=== PATIENT | male | born 1935 | race Two or more races ===

== ENCOUNTER 2019-04-07 16:11 | Inpatient (IN) | payer MEDICARE, OTHER ==
[~2019-04-07] VITALS: Ht 172.7 cm; Wt 68.9 kg
--- NOTE | 2019-04-07 00:55 | NUR ---
The patient was brought onto the unit and placed in his room @0044. The patient is alert and oriented x4. is present at bed side. He does not appear to be in any distress and denies any pain. The patient was oriented to the call light, room, and bed. The bed placed in the lowest position, 2x side rails up, and bed alarm is turned on. The patient has been instructed to use call light when assistance is needed.
[~2019-04-07 16:11] MED LIST: HYDR12.56 PO; HYDR25TA4 PO; INSUINJ32 SC; LISI-646 PO; METF-370 PO; PRAV20TA3 GT
[2019-04-07] MEDS ORDERED: cloNIDine HCL 0.1 MG TAB PO ONE (16:30)
[2019-04-07 18:37] LABS: Alanine Aminotransferase 17 U/L (16-61); Albumin 3.3 g/dL (3.4-5.0); Anion Gap 5 (5-15); Aspartate Aminotransferase 12 U/L (15-37); BUN/Creatinine Ratio 14.1; Blood Urea Nitrogen 20 mg/dL (7-18); Calcium 8.4 mg/dL (8.5-10.1); Carbon Dioxide 25 mmol/L (21-32); Chloride 108 mmol/L (98-107); GFR African American 61 mL/min; GFR Non-African American 51 mL/min; Glucose 304 mg/dL (74-106); Potassium 5.3 mmol/L (3.5-5.1); Sodium 138 mmol/L (136-145)
[2019-04-07 18:42] LABS: Alkaline Phosphatase 64 U/L (45-117); Bilirubin, Total 0.5 mg/dL (0.2-1.0); Total Protein 6.8 g/dL (6.4-8.2)
[2019-04-07 18:47] LABS: Basophils # (auto) 0 uL; Basophils % (auto) 0.7 % (0.0-2.0); Eosinophils # (auto) 0.1 uL; Eosinophils % (auto) 1.8 % (0.0-7.0); Hematocrit 36.9 % (41.0-53.0); Hemoglobin 12.2 g/dL (13.5-17.5); Lymphocytes # (auto) 1.3 uL; Lymphocytes % (auto) 20.9 % (10.0-50.0); Mean Corpuscular Hemoglobin 29.9 pg (28.0-32.0); Mean Corpuscular Hgb Conc. 33.1 g/dL (32.0-36.0); Mean Corpuscular Volume 90.2 fL (80.0-100.0); Monocytes # (auto) 0.4 uL; Monocytes % (auto) 6.4 % (0.0-12.0); Neutrophils # (auto) 4.5 uL; Neutrophils % (auto) 70.2 % (37.0-80.0); Platelet Count (auto) 194 10^3/uL (140-450); Red Blood Cells 4.09 10^6/uL (4.5-5.90); White Blood Cell 6.4 10^3/uL (4.4-10.8)
[2019-04-07] MEDS ORDERED: ACETAMINOPHEN 325 MG TAB PO PRN (22:45)
[2019-04-07] MEDS ORDERED: HYDROcodone-ACET 5/325MG TAB PO PRN (22:45)
[2019-04-07] MEDS ORDERED: TEMAZEPAM 15 MG CAP PO PRN (22:45)
[2019-04-07] MEDS ORDERED: SODIUM ZIRCONIUM CYCL 10 GM PAK PO ONE (23:00)
[2019-04-08] MEDS: cloNIDine HCL 0.1 MG TAB PO PRN ×2 (01:39→16:28)
--- NOTE | 2019-04-08 01:40 | NUR ---
The patient's BP is 174/72. The patient is currently asymptomatic. Will medicate the patient with PRN clonidine 0.1 mg.
--- NOTE | 2019-04-08 02:50 | NUR ---
Upon reassessment, the patient's blood pressure is 132/53. Will continue to monitor the patient's blood pressure.
[2019-04-08 05:23] VITALS: BP 131/72
[2019-04-08 06:42] LABS: Basophils # (auto) 0 uL; Basophils % (auto) 0.7 % (0.0-2.0); Eosinophils # (auto) 0.2 uL; Eosinophils % (auto) 2.5 % (0.0-7.0); Hematocrit 35.1 % (41.0-53.0); Lymphocytes # (auto) 1.4 uL; Lymphocytes % (auto) 23.3 % (10.0-50.0); Mean Corpuscular Hemoglobin 30.5 pg (28.0-32.0); Mean Corpuscular Hgb Conc. 34.1 g/dL (32.0-36.0); Mean Corpuscular Volume 89.4 fL (80.0-100.0); Monocytes # (auto) 0.5 uL; Monocytes % (auto) 7.9 % (0.0-12.0); Neutrophils # (auto) 3.9 uL; Neutrophils % (auto) 65.6 % (37.0-80.0); Platelet Count (auto) 180 10^3/uL (140-450); Red Blood Cells 3.93 10^6/uL (4.5-5.90); Red Cell Distribution Width 13.6 % (11.8-14.3)
[2019-04-08 06:47] LABS: Calcium 8.3 mg/dL (8.5-10.1); Potassium 4.7 mmol/L (3.5-5.1)
--- NOTE | 2019-04-08 07:20 | NUR ---
Closing note The patient is resting comfortably in bed and is stable. Care has been endorsed to Day shift RN.
--- NOTE | 2019-04-08 07:30 | NUR ---
Opening Shift Note Assumed care of patient, awake and alert. No S/S of distress/SOB or pain. Instructed on POC and to call for assist PRN, will continue to monitor. Bed locked in the lowest position. Bed rails up x2. Call light in reach.
[2019-04-08 09:00] VITALS: BP 125/55
[2019-04-08] MEDS: LISINOPRIL 20 MG TAB PO SCH (10:12)
[2019-04-08] MEDS: HCTZ 25 MG TAB PO SCH (10:13)
[2019-04-08 13:00] VITALS: BP 148/73
--- NOTE | 2019-04-08 13:09 | NUR ---
HEART RATE PATIENT HR HAS BEEN 49-59 BPM. OBTAINED EKG AND PLACED IN CHART FOR MD REVIEW. PATIENT IS ASYMPTOMATIC AT THIS TIME. PATIENT DENIES DIZZINESS, SOB, AND PAIN. WILL CONTINUE TO MONITOR.
--- NOTE | 2019-04-08 16:20 | NUR ---
BLOOD PRESSURE BP OF 187/86. PRN GIVEN ORDERED. AWARE.
[2019-04-08 17:00] VITALS: BP 187/86
--- NOTE | 2019-04-08 18:00 | NUR ---
AWARE DR. MUNSON AWARE OF PTS TRENDING HR. NO NEW ORDERS RECEIVED.
[2019-04-08] MEDS ORDERED: INSULIN LANTUS (GLARGINE) 1 /0.01ml (100units/ml) SC ONE (18:15)
[2019-04-08] MEDS ORDERED: DEXTROSE (50%) 50ML SYRG IV PRN (18:15)
[2019-04-08] MEDS ORDERED: metFORMIN HYDROCHLORIDE 850 MG TAB PO ONE (18:15)
--- NOTE | 2019-04-08 18:28 | NUR ---
UNABLE TO COMPLETE ORDER DR. MUNSON AT THE BEDSIDE PLACING NEW ORDERS. MD AWARE THAT NEW ORDERS ARE NOT BEING TRANSMITTED TO PHARMACY. UNABLE TO OVERRIDE MEDICATIONS AT THIS TIME. PER MD, OK TO HOLD NEW ORDERS.
--- NOTE | 2019-04-08 19:02 | NUR ---
CLOSING NOTE Patient is awake and alert. No S/S of distress/SOB or pain. Bed locked in the lowest position. Bed rails up x2. Call light in reach. Endorsed care to night nurse.
--- NOTE | 2019-04-08 19:15 | NUR ---
Opening Shift Note Assumed care of patient, awake and alert. No S/S of distress/SOB or pain. Instructed on POC and to call for assist PRN, will continue to monitor for changes Q1hr and PRN.
[2019-04-08 22:00] VITALS: BP 136/61
[2019-04-08] MEDS ORDERED: ATORVASTATIN 20 MG TAB PO SCH (22:00)
[2019-04-08] MEDS: ACCU-CHEK COMFORT CURVE STRIP VI SCH (22:08)
--- NOTE | 2019-04-08 22:10 | NUR ---
Assessed the patient's glucose level which resulted as 341 dL/mg. The patient currently has no Insulin R sliding slide. Will page hospitalist for Insulin sliding scale orders.
--- NOTE | 2019-04-08 22:15 | NUR ---
Obtained mild ACHS Insulin sliding scale from hospitalist Fuentes.
[2019-04-08] MEDS: InsuLIN REG 1unit/0.01ml Soln (100units/ml) SC SCH (22:56)
[2019-04-09 05:00] VITALS: BP 112/55
[2019-04-09] MEDS: InsuLIN REG 1unit/0.01ml Soln (100units/ml) SC SCH ×2 (06:38→11:30)
[2019-04-09] MEDS: ACCU-CHEK COMFORT CURVE STRIP VI SCH ×2 (06:39→11:30)
[2019-04-09] MEDS ORDERED: metFORMIN HYDROCHLORIDE 850 MG TAB PO SCH (07:00)
--- NOTE | 2019-04-09 07:37 | NUR ---
Closing note The patient is resting comfortably in bed and is stable. Call light is within reach. Care has been endorsed to Day shift RN.
[2019-04-09 08:00] VITALS: BP 139/61
[2019-04-09 08:57] VITALS: BP 139/61
[2019-04-09 09:46] LABS: Urine Bacteria NONE SEEN /hpf (None Seen); Urine Blood Negative /uL (Negative); Urine Specific Gravity 1.019 (1.001-1.035); Urine WBC <1 /hpf (0 - 3)
[2019-04-09 10:00] LABS: Protein, Urine 32.2 mg/dL (0.0-11.9)
[2019-04-09] MEDS: HCTZ 25 MG TAB PO SCH (10:20)
[2019-04-09] MEDS: LISINOPRIL 20 MG TAB PO SCH (10:20)
--- NOTE | 2019-04-09 11:20 | NUR ---
Dr. Ann luke Addendum: 04/09/19 at 1317 by ALAYNA SOLORZANO RN Spoke with ; reports sodium bicarb dose should not affect blood pressure.
[2019-04-09] MEDS: cloNIDine HCL 0.1 MG TAB PO PRN (11:55)
--- NOTE | 2019-04-09 11:59 | NUR ---
BP 187/64 Dr. Alexander at bedside. Patient given PRN clonidine.
[2019-04-09 12:27] VITALS: BP 120/69
[2019-04-09 12:42] VITALS: BP 187/84
--- NOTE | 2019-04-09 12:58 | NUR ---
BP recheck 137/61
--- NOTE | 2019-04-09 13:15 | NUR ---
Discharge from Tele Discharge instructions given as ordered. Encourage to follow up with PMD as instructed. All questions and concerns addressed. Patient verbalized understanding. IV removed with catheter intact, pressure dressing applied. Patient taken to vehicle via wheelchair with all personal belongings, accompanied by staff and family member. No distress noted at time of departure.
== END 2019-04-09 13:15 | disposition home or self-care (01) | DRG 683 ==
LOC: ER 16:11 → WEST WING 22:36
PROVIDERS: ADMIT Nurse Practitioner; ATTEND Nurse Practitioner
DX: I12.9 Hypertensive chronic kidney disease with stage 1 through stage 4 chronic kidney disease, or unspecified chronic kidney disease (principal); N17.9 Acute kidney failure, unspecified; N25.89 Other disorders resulting from impaired renal tubular function; E87.5 Hyperkalemia; E11.65 Type 2 diabetes mellitus with hyperglycemia; E11.22 Type 2 diabetes mellitus with diabetic chronic kidney disease; N18.9 Chronic kidney disease, unspecified; E78.5 Hyperlipidemia, unspecified; E03.9 Hypothyroidism, unspecified; H40.9 Unspecified glaucoma; H54.7 Unspecified visual loss; Z79.4 Long term (current) use of insulin; Z82.49 Family history of ischemic heart disease and other diseases of the circulatory system; Z83.3 Family history of diabetes mellitus
CPT/HCPCS: 36415; 71045; 80048; 80053; 81001; 82570; 82962; 83036; 84132; 84156; 84300; 84484; 85025; 93005; 94761; G0378; J1815

== ENCOUNTER 2025-03-28 10:52 | Inpatient (IN) | payer OTHER, BC ==
[~2025-03-28] VITALS: Ht 172.7 cm; Wt 62.9 kg
[~2025-03-28 10:52] MED LIST changes: +AMLO1TAB22 PO; +ATOR10TA52 PO; +DAPA1TAB4 PO; +FIN5T PO; -HYDR12.56 PO; +HYDR12.59 PO; +INSU100I4 SC; -INSUINJ32 SC; +INSUINJ37 SC; +LEV75T PO; -LISI-646 PO; +LISI10TA34 PO; +MEMA1TAB5 PO; -METF-370 PO; -PRAV20TA3 GT
--- NOTE | 2025-03-28 11:17 | ECG ---
[facility] Test Date: 2025-03-28 Test Time: 11:05:54 Pat Name: KAYCEE MOSS Department: ER Room: Gender: M Commercial Credit Analyst: GP : [id number] Requested By: ALAN STUART Order Number: [id number] Reading MD: Pipe Sung Measurements Intervals [place] Rate: 82 P: 61 NM: 175 QRS: 61 QRSD: 98 T: 82 QT: 371 QTc: 434 Interpretive Statements Sinus rhythm Nonspecific repol abnormality, lateral leads Electronically Signed On 03-28-2025 17:11:28 PDT by Pipe Sung Please click the below link to view image of tracing.
--- NOTE | 2025-03-28 11:46 | ED.PDOC ---
History of Present Illness HPI Comments 89-year-old male with history of dementia, hypertension, diabetes and dyslipidemia brought in by family for evaluation of possible stroke symptoms. Patient's family states that the patient was noted to be having episodes of fixed gaze during which he was not verbally responsive to questions. They also note that his right hand and wrist have been held in a flexed position. Symptoms started yesterday morning, unclear exactly what time. The patient also was noted to be sleeping much more than usual. Patient himself denies any headache, vision changes or other symptoms. He does note that his right hand feels weaker than normal. Chief Complaint: ALOC Time Seen by MD: 11:15 Primary Care Provider: DICK Jacobson Notes: Nurses Notes, Medications, Allergies Allergies: Coded Allergies: NO KNOWN ALLERGIES (Unverified , 05/10/14) Home Meds Reported Medications Hydrochlorothiazide (Hydrochlorothiazide) 25 Mg Tab, 25 MG PO DAILY, TAB 05/11/14 Hydrochlorothiazide (Hydrochlorothiazide) 12.5 Mg Cap, 12.5 MG PO DAILY, #1 MG 05/10/14 Information Source: Patient Mode of Arrival: Wheelchair Severity: Moderate Timing: Hours Duration: Since onset Prehospital treatment: None Past Medical History PAST MEDICAL HISTORY: Dementia, DM, High Lipids, HTN, Thyroid Past Medical History (Other): Blind Surgical History (Other): Cataracts Family History Family History: Reviewed,noncontributory to illness, Unknown Social History Smoker: Non-Smoker Alcohol: Denies ETOH Use Drugs: Denies Drug Use Lives In: Home Constitutional: reports: others (Right hand contracted); denies: chills, diaphoresis, fatigue, fever, malaise, sweats, weakness EENTM: denies: blurred vision, double vision, ear bleeding, ear discharge, ear drainage, ear pain, ear ringing, eye pain, eye redness, hearing loss, mouth pain, mouth swelling, nasal discharge, nose bleeding, nose congestion, nose pain, photophobia, tearing, throat pain, throat swelling, voice changes, others Respiratory: denies: cough, hemoptysis, orthopnea, SOB at rest, shortness of breath, SOB with excertion, stridor, wheezing, others Cardiovascular: denies: chest pain, dizzy spells, diaphoresis, Dyspnea on exertion, edema, irregular heart beat, left arm pain, lightheadedness, palpitations, PND, syncope, others Gastrointestinal: denies: abdomen distended, abdominal pain, blood streaked bowels, constipated, diarrhea, dysphagia, difficulty swallowing, hematemesis, melena, nausea, poor appetite, poor fluid intake, rectal bleeding, rectal pain, vomiting, others Genitourinary: denies: burning, dysuria, flank pain, frequency, hematuria, incontinence, penile discharge, penile sore, pain, testicle pain, testicle swelling, urgency, others Neurological: denies: dizziness, fainting, headache, left sided numbness, left sided weakness, numbness, paresthesia, pre-existing deficit, right sided numbness, right sided weakness, seizure, speech problems, tingling, tremors, weakness, others Musculoskeletal: denies: back pain, gout, joint pain, joint swelling, muscle pain, muscle stiffness, neck pain, others Integumetry: denies: bruises, change in color, change in hair/nails, dryness, laceration, lesions, lumps, rash, wounds, others Allergic/Immunocompromised: denies: Difficulty Healing, Frequent Infections, Hives, Itching, others Hematologic/Lymphatic: denies: anemia, blood clots, easy bleeding, easy bruising, swollen glands, others Endocrine: denies: excessive hunger, excessive sweating, excessive thirst, excessive urination, flushing, intolerance to cold, intolerance to heat, unexplained weight gain, unexplained weight loss, others Psychiatric: denies: anxiety, bipolar disorder, depression, hopeless, panic disorder, schizophrenia, sleepless, suicidal, others All Other Systems: Reviewed and Negative Physical Exam General Appearance: No Apparent Distress HEENT: Other (Pupils and face symmetric. Moist mucous membranes.) Neck: Full Range of Motion, Normal Inspection Respiratory: Lungs Clear, No Accessory Muscle Use, No Respiratory Distress, Normal Breath Sounds Cardiovascular: No Edema, No JVD, Regular Rate/Rhythm Breast Exam: Deferred Gastrointestinal: Non Tender, Soft Genitalia: Deferred Pelvic: Deferred Rectal: Deferred Extremities: No pedal edema Neurologic: Alert (Oriented x3), film laboratory technician II-XII nml as Tested, Motor Weakness (Right upper extremity 4/5, left upper extremity and bilateral lower extremities 5/5) Cerebellar Function: NOT DONE Reflexes: NOT DONE Skin: Dry, Normal Color, Warm Lymphatic: NOT DONE Was a procedure done? Was a procedure done?: No EKG EKG : Comments Sinus rhythm, rate 82, normal intervals, left axis deviation, possible old inferior infarct, nonspecific T changes. Differential Dx Considerations may include: CVA, TIA, electrolyte imbalance, infection such as meningitis, encephalitis, UTI, arrhythmia, TN, among others X-Ray, Labs, Meds, VS Vital Signs Date Time Temp Pulse Resp B/P (MAP) Pulse Ox O2 Delivery O2 Flow Rate FiO2 03/28/25 19:32 98.6 76 15 119/62 (81) 98 98.6 03/28/25 18:00 72 20 144/58 (86) 100 03/28/25 16:00 72 17 149/60 (89) 100 03/28/25 16:00 73 03/28/25 14:00 70 20 132/54 (80) 100 03/28/25 13:35 97.0 68 18 134/57 (82) 99 97.0 03/28/25 12:30 74 19 99 Room Air* 0 21 03/28/25 12:08 71 03/28/25 11:05 82 03/28/25 10:57 97.9 83 18 110/42 (64) 99 97.9 Lab Test 03/28/25 17:50 03/28/25 16:00 03/28/25 12:40 03/28/25 11:31 Range/Units POC Glucose 138 H 70-106 mg/dl Urine Color Light-yellow Yellow Urine Clarity Clear Clear Urine pH 5.0 5.0-9.0 Urine Specific [place] 1.019 1.001-1.035 Urine Protein Negative Negative Urine Ketones Negative Negative Urine Blood Negative Negative /uL Urine Nitrite Negative Negative Urine Bilirubin Negative Negative Urine Urobilinogen Normal Negative mg/dL Urine Leukocyte Esterase Negative Negative /uL Urine RBC 1 0 - 3 /hpf Urine Microscopic WBC 1 0-3 /HPF Urine Squamous Epithelial Cells None seen <5 /hpf Urine Bacteria None seen None Seen /hpf Urine Mucus Few None Seen Urine Glucose 4+ H Normal mg/dL Troponin I High Sensitivity 69 *H 75 *H </=54 ng/L White Blood Count 11.6 H 4.4-10.8 10^3/uL Red Blood Count 3.76 L 4.5-5.90 10^6/uL Hemoglobin 11.3 L 13.5-17.5 g/dL Hematocrit 33.4 L 41.0-53.0 % Mean Corpuscular Volume 88.9 80.0-100.0 fL Mean Corpuscular Hemoglobin 29.9 28.0-32.0 pg Mean Corpuscular Hemoglobin Concent 33.7 32.0-36.0 g/dL Red Cell Distribution Width 15.4 H 11.8-14.3 % Platelet Count 430 140-450 10^3/uL Mean Platelet Volume 7.3 6.9-10.8 fL Neutrophils (%) (Auto) 84.4 H 37.0-80.0 % Lymphocytes (%) (Auto) 8.8 L 10.0-50.0 % Monocytes (%) (Auto) 6.0 0.0-12.0 % Eosinophils (%) (Auto) 0.3 0.0-7.0 % Basophils (%) (Auto) 0.5 0.0-2.0 % Neutrophils # (Auto) 9.8 H 1.6-8.6 10 ^3/uL Lymphocytes # (Auto) 1.0 0.4-5.4 10 ^3/uL Monocytes # (Auto) 0.7 0-1.3 10 ^3/uL Eosinophils # (Auto) 0 0-0.8 10 ^3/uL Basophils # (Auto) 0.1 0-0.2 10 ^3/uL Nucleated Red Blood Cells 0.1 % Sodium Level 135 L 136-145 mmol/L Potassium Level 4.9 3.5-5.1 mmol/L Chloride Level 107 98-107 mmol/L Carbon Dioxide Level 20 20-31 mmol/L Anion Gap 8 5-15 Blood Urea Nitrogen 60 H 9-23 mg/dL Creatinine 1.47 H 0.700-1.30 mg/dL Glomerular Filtration Rate Calc 45 >90 mL/min BUN/Creatinine Ratio 40.8 H 10.0-20.0 Serum Glucose 225 H 74-106 mg/dL Calcium Level 9.3 8.7-10.4 mg/dL Total Bilirubin 0.6 0.2-1.0 mg/dL Aspartate Amino Transferase (AST) 17 13-40 U/L Alanine Aminotransferase (ALT) 13 7-40 U/L Alkaline Phosphatase 55 46-116 U/L B-Type Natriuretic Peptide 50.25 0-100 pg/mL Total Protein 7.0 5.7-8.2 g/dL Albumin 4.0 3.2-4.8 g/dL Test 03/28/25 11:07 Range/Units POC Glucose 179 H 70-106 mg/dl Current Medications Medications (Trade) Dose Ordered Sig/Slick Route Start Time Stop Time Status Last Admin Aspirin 325 mg ONCE ONCE PO 03/28/25 12:30 03/28/25 12:38 DC 03/28/25 12:46 PROCEDURE(s): HWOCT - HEAD WITHOUT CONTRAST REASON: rue weak, mental status change ORDER NUMBER(s): [id number], ACCESSION NUMBER(s): [id number] CLINICAL INFORMATION: 89 years old, Male; rue weak, mental status change. TECHNIQUE: Axial imaging was obtained through the brain without contrast. Coronal and sagittal reformatted images were obtained, reviewed, and stored. Images were reviewed in brain and bone windows. All CT scans at this medical facility are performed using dose modulation techniques as appropriate to a performed exam including the following: Automated exposure control was utilized; adjustment of the MA and/or KV according to patient size; and use of iterative reconstruction technique. CTDIvol = 57.63 mGy DLP = 1135.76 mGy-cm COMPARISON: None FINDINGS: There is no acute intracranial hemorrhage. No mass effect or midline shift. Scattered areas of hypoattenuation are seen in the periventricular and subcortical white matter, which are nonspecific but most likely sequelae of small vessel ischemic disease. Lucencies in the basal ganglia bilaterally, likely small chronic lacunar infarcts. Focal area of encephalomalacia in the right occipital lobe likely sequela of prior infarct The ventricles and sulci are within normal limits in size for age. Basal cisterns are patent. Prominent extra-axial CSF fluid along the lateral aspect of the right cerebellar hemisphere, possible arachnoid cyst measuring up to 3 cm. The calvarium is unremarkable. Paranasal sinuses and mastoid air cells are clear. IMPRESSION: 1. No CT evidence of acute intracranial abnormality. 2. Nonacute findings as detailed above. EDURE(s): CXR1 - CHEST XRAY 1 VIEW REASON: RUE weakness, mental status change ORDER NUMBER(s): [id number], ACCESSION NUMBER(s): [id number] EXAM: XY CHEST XRAY 1 VIEW Indication: pain Technique: Single frontal view of the chest was obtained Comparison: None FINDINGS: Lines and Tubes: None Lungs: No focal consolidation. Pleura: No effusion. No pneumothorax. Cardiomediastinal contours: Unremarkable. Atherosclerotic vascular calcifications of the thoracic aorta are noted. Bones: No acute osseous abnormality. IMPRESSION: No acute cardiopulmonary disease. X-Ray, Labs, Meds, VS Comment 89-year-old male with history of dementia, hypertension, diabetes and dyslipidemia presenting with episodes of unresponsiveness and right upper extremity weakness since yesterday morning. Vitals unremarkable Exam remarkable for 4/5 strength in the right upper extremity with the right wrist held in flexion Rhythm strip independently interpreted by me: Sinus rhythm, rate 82, no ectopy. Chest x-ray and head CT unremarkable CBC remarkable for WBC 11.6, metabolic panel remarkable for sodium 135, BUN 60, creatinine 1.47, troponin 75, repeat 69, UA 4+ glucose, otherwise unremarkable Patient treated with the following in the ED: Aspirin 325 mg p.o. Plan is to admit the patient for MRI of the brain, Neurology and Cardiology evaluation. Case discussed with Dr. Nuñez, who will admit the patient. Time of 1ST Reevaluation: 11:45 Reevaluation 1ST: Unchanged Patient Education/Counseling: Diagnosis, Treatment, Prognosis Family Education/Counseling: Diagnosis, Treatment, Prognosis Departure 1 Departure Time of Disposition: 18:29 Impression: Primary Impression: CVA (cerebral vascular accident) Qualified Codes: I63.9 - Cerebral infarction, unspecified Additional Impression: Non-STEMI (non-ST elevated myocardial infarction) Disposition: 09 ADMITTED INPATIENT Admit to: [facility] Condition: Guarded Critical Care Note Critical Care Time?: No Stability Stability form required: No Heart Score Heart Score: Heart Score Response (Comments) Value History N/A 0 EKG N/A 0 Age N/A 0 Risk Factors N/A 0 Troponin N/A 0 Total 0 I personally scribed for ALAN DUVALL MD ([email or web address]) on 03/28/25 at 11:46. Electronically submitted by Toby Blunt ([email or web address]). I personally scribed for ALAN DUVALL MD ([email or web address]) on 03/28/25 at 17:43. Electronically submitted by Toby Blunt ([email or web address]). ALAN DUVALL MD Mar 28, 2025 11:46
--- NOTE | 2025-03-28 12:10 | DVH ---
CLINICAL INFORMATION: 89 years old, Male; rue weak, mental status change. TECHNIQUE: Axial imaging was obtained through the brain without contrast. Coronal and sagittal reform atted images were obtained, reviewed, and stored. Images were reviewed in brain and bone windows. Al l CT scans at this medical facility are performed using dose modulation techniques as appropriate to a performed exam including the following: Automated exposure control was utilized; adjustment of the MA and/or KV according to patient size; and use of iterative reconstruction technique. CTDIvol = 57.6 3 mGy DLP = 1135.76 mGy-cm COMPARISON: None FINDINGS: There is no acute intracranial hemorrhage. No mass effect or midline shift. Scattered areas of hypoattenuation are seen in the periventricular and subcortical white matter, which are nonspecif ic but most likely sequelae of small vessel ischemic disease. Lucencies in the basal ganglia bilatera lly, likely small chronic lacunar infarcts. Focal area of encephalomalacia in the right occipital lob e likely sequela of prior infarct The ventricles and sulci are within normal limits in size for age. Basal cisterns are patent. Prominent extra-axial CSF fluid along the lateral aspect of the right cere bellar hemisphere, possible arachnoid cyst measuring up to 3 cm. The calvarium is unremarkable. Paran herve sinuses and mastoid air cells are clear. IMPRESSION: 1. No CT evidence of acute intracranial abnormality. 2. Nonacute findings as detailed above.
--- NOTE | 2025-03-28 12:13 | DVH ---
EXAM: XY CHEST XRAY 1 VIEW Indication: pain Technique: Single frontal view of the chest was obtained Comparison: None FINDINGS: Lines and Tubes: None Lungs: No focal consolidation. Pleura: No effusion. No pneumothorax. Cardiomediastinal contours: Unremarkable. Atherosclerotic vascular calcifications of the thoracic ao rta are noted. Bones: No acute osseous abnormality. IMPRESSION: No acute cardiopulmonary disease.
[2025-03-28 12:27] LABS: Basophils # (auto) 0.1 10 ^3/uL (0-0.2); Basophils % (auto) 0.5 % (0.0-2.0); Eosinophils # (auto) 0 10 ^3/uL (0-0.8); Eosinophils % (auto) 0.3 % (0.0-7.0); Hematocrit 33.4 % (41.0-53.0); Hemoglobin 11.3 g/dL (13.5-17.5); Lymphocytes % (auto) 8.8 % (10.0-50.0); Mean Corpuscular Hemoglobin 29.9 pg (28.0-32.0); Mean Corpuscular Hgb Conc. 33.7 g/dL (32.0-36.0); Mean Corpuscular Volume 88.9 fL (80.0-100.0); Monocytes # (auto) 0.7 10 ^3/uL (0-1.3); Neutrophils # (auto) 9.8 10 ^3/uL (1.6-8.6); Neutrophils % (auto) 84.4 % (37.0-80.0); Nucleated Red Blood Cells % 0.1 %; Platelet Count (auto) 430 10^3/uL (140-450); Red Blood Cells 3.76 10^6/uL (4.5-5.90); Red Cell Distribution Width 15.4 % (11.8-14.3); White Blood Cell 11.6 10^3/uL (4.4-10.8)
[2025-03-28 12:30] VITALS: PULSE 74; RESP 19; O2SAT 99
[2025-03-28 12:45] LABS: Alanine Aminotransferase 13 U/L (7-40); Alkaline Phosphatase 55 U/L (46-116); Anion Gap 8 (5-15); Aspartate Aminotransferase 17 U/L (13-40); BUN/Creatinine Ratio 40.8 (10.0-20.0); Bilirubin, Total 0.6 mg/dL (0.2-1.0); Calcium 9.3 mg/dL (8.7-10.4); Carbon Dioxide 20 mmol/L (20-31); Potassium 4.9 mmol/L (3.5-5.1)
[2025-03-28] MEDS: ASPirin 325 MG TAB PO ONE (12:46)
[2025-03-28 12:47] LABS: Blood Urea Nitrogen 60 mg/dL (9-23); Chloride 107 mmol/L (98-107); Glucose 225 mg/dL (74-106); Sodium 135 mmol/L (136-145)
[2025-03-28 16:28] LABS: Urine Bacteria None Seen /hpf (None Seen)
[2025-03-28 16:45] LABS: Urine Blood Negative /uL (Negative); Urine Clarity Clear (Clear); Urine Color Light-Yellow (Yellow); Urine Mucus FEW (None Seen); Urine Protein, UAD Negative (Negative); Urine Specific Gravity 1.019 (1.001-1.035); Urine Squamous Epithelial Cell None Seen /hpf (<5); Urine Urobilinogen Normal (Negative); Urine WBC 1 /HPF (0-3)
[2025-03-28 19:32] VITALS: PULSE 76; RESP 15; O2SAT 98
[2025-03-28] MEDS ORDERED: NITROGLYCERIN 0.4 MG SL TAB SL PRN (22:00)
[2025-03-28] MEDS ORDERED: MORPHINE SULFATE INJ 2 MG/ml SYRG IV PRN (22:00)
[2025-03-28] MEDS ORDERED: ONDANSETRON HCL 4 MG/2 ML VIAL IV PRN (22:15)
[2025-03-28] MEDS: ALBUTEROL SULF 2.5 MG/0.5ML(0.5%) NEB SOLN NEB SCH (23:26)
[2025-03-28] MEDS: IPRATROPIUM BROM 0.5 MG/2.5ML INH SOL NEB PRN (23:26)
[2025-03-29] VITALS (17 sets, daily range): BP systolic 123–144; BP diastolic 52–86; PULSE 70–98; RESP 16–18; TEMP 97.1–98.1; O2SAT 18–100
[2025-03-29] MEDS ORDERED: DEXTROSE (50%) 50ML SYRG IV PRN (06:45)
[2025-03-29 07:38] LABS: Basophils # (auto) 0 10 ^3/uL (0-0.2); Basophils % (auto) 0.4 % (0.0-2.0); Eosinophils # (auto) 0.1 10 ^3/uL (0-0.8); Eosinophils % (auto) 0.7 % (0.0-7.0); Hematocrit 34.4 % (41.0-53.0); Hemoglobin 11.4 g/dL (13.5-17.5); Lymphocytes # (auto) 1.8 10 ^3/uL (0.4-5.4); Lymphocytes % (auto) 15.6 % (10.0-50.0); Mean Corpuscular Hgb Conc. 33.1 g/dL (32.0-36.0); Mean Corpuscular Volume 90.7 fL (80.0-100.0); Monocytes # (auto) 0.8 10 ^3/uL (0-1.3); Monocytes % (auto) 6.7 % (0.0-12.0); Neutrophils # (auto) 8.9 10 ^3/uL (1.6-8.6); Neutrophils % (auto) 76.6 % (37.0-80.0); Nucleated Red Blood Cells % 0.1 %; Platelet Count (auto) 422 10^3/uL (140-450); Red Cell Distribution Width 15.8 % (11.8-14.3); White Blood Cell 11.6 10^3/uL (4.4-10.8)
[2025-03-29 07:41] LABS: Alanine Aminotransferase 16 U/L (7-40); Alkaline Phosphatase 57 U/L (46-116); Anion Gap 6 (5-15); Aspartate Aminotransferase 16 U/L (13-40); BUN/Creatinine Ratio 36.5 (10.0-20.0); Bilirubin, Total 0.6 mg/dL (0.2-1.0); Calcium 9.8 mg/dL (8.7-10.4); Carbon Dioxide 25 mmol/L (20-31); Chloride 106 mmol/L (98-107); Potassium 4.6 mmol/L (3.5-5.1); Sodium 137 mmol/L (136-145); Total Protein 7.1 g/dL (5.7-8.2)
[2025-03-29 07:48] LABS: Blood Urea Nitrogen 54 mg/dL (9-23); Glucose 160 mg/dL (74-106)
[2025-03-29] MEDS: ENOXAPARIN SOD 40 MG/0.4 ML SYRINGE SC SCH (08:55)
[2025-03-29] MEDS: ACCU-CHEK COMFORT CURVE STRIP VI SCH (08:55)
[2025-03-29] MEDS: SODIUM CHLORIDE 0.9% 1,000 ML IV SCH (08:56)
[2025-03-29] MEDS: InsuLIN REG 1unit/0.01ml Soln (100units/ml) SC SCH (08:57)
--- NOTE | 2025-03-29 11:43 | DVHINCON2 ---
Date Seen: March 29, 2025 Referring Physician MD Joaquin Reason for Consultation Elevated troponin History of Present Illness This is an 89-year-old male patient who presents to the emergency room with chief complaint of stroke-like symptoms. The patient's daughter at bedside reports that she noticed that the patient's right hand went into a flexed position approximately two days ago. She states that she thought that the patient probably slept wrong so she did not think much of it. Yesterday, while out at a doctor's visit, the patient had an episode in which he was not verbally responsive to questions and appeared to have a fixed gaze. The patient's family also mentions that the patient has been more tired than usual. They brought the patient to the emergency room to rule out stroke. Cardiology has been consulted at this time for elevated troponin level. Initial twelve lead electrocardiogram reveals normal sinus rhythm with artifact. Initial troponin level of 75ng/L with down trend thereafter. Significant past medical history includes h ypertension, dyslipidemia, type 2 diabetes mellitus, peripheral neuropathy, benign prostatic hyperplasia, blindness, and dementia. The patient denies any cardiac symptoms at time of assessment. Past Medical History Past medical history reviewed. No other significant than mentioned above. Past Surgical History Denies all previous surgeries Family History: Diabetes mellitus G8 FATHER, Onset:Unknown Family history: Cardiovascular disease Family history: Hypertension G8 FATHER, Onset:Unknown Family History Family history reviewed. Social History Denies the use of tobacco, alcohol or illicit drugs. Allergies: Coded Allergies: NO KNOWN ALLERGIES (Unverified , 05/10/14) Home Meds Reported Medications Hydrochlorothiazide (Hydrochlorothiazide) 25 Mg Tab, 25 MG PO DAILY, TAB 05/11/14 Hydrochlorothiazide (Hydrochlorothiazide) 12.5 Mg Cap, 12.5 MG PO DAILY, #1 MG 05/10/14 Home Meds Home medications reviewed. Current Medications Current Medications Medications (Trade) Dose Ordered Sig/Slick Route PRN Reason Start Time Stop Time Status Last Admin Nitroglycerin (Ntrostat Sublingual) 0.4 mg Q5MINP PRN SL FOR CHEST PAIN 03/28/25 22:00 Morphine Sulfate 2 mg Q30M PRN IV FOR CHEST PAIN 03/28/25 22:00 Albuterol (Ventolin Medneb) 2.5 mg Q6HR NEB 03/29/25 00:00 03/29/25 06:15 Ipratropium [place] (Atrovent Medneb) 0.5 mg Q6HP PRN NEB SHORTNESS OF BREATH 03/29/25 00:00 03/29/25 06:15 Ondansetron HCl (Zofran) 4 mg Q6HPRN PRN IV NAUSEA / VOMITING 03/28/25 22:15 Enoxaparin Sodium (Lovenox) 40 mg DAILY SC 03/29/25 10:00 03/29/25 08:55 Diagnostic Test (Pha) (Accu-Chek Comfort Curve T) 1 strip IQ4HR 03/29/25 08:00 03/29/25 08:55 Insulin Human Regular (InsuLIN R) IQ4HR SC 03/29/25 08:00 03/29/25 08:57 Dextrose 50 ml UD PRN IV Blood Sugar LESS THAN 60 03/29/25 06:45 Sodium Chloride 1,000 ml @ 75 mls/hr [id number] IV 03/29/25 08:00 03/29/25 08:56 Review of Systems Constitutional: No symptom reported Ears, Nose, & Throat: No symptom reported Eyes: No symptom reported Neurological: No symptoms reported Pulmonary/Respiratory: No symptoms reported Cardiovascular: No symptom reported Gastrointestinal: No symptom reported Genitourinary: No symptom reported Musculoskeletal: No symptom reported Skin: No symptom reported Psychiatric: No symptom reported Endocrine: No symptom reported Hematologic/Lymphatic: No symptom reported Vital Signs Vital Signs Date Time Temp Pulse Resp B/P (MAP) Pulse Ox O2 Delivery O2 Flow Rate FiO2 03/29/25 06:25 72 18 100 03/29/25 06:15 Room Air 03/29/25 06:15 0 21 03/29/25 03:21 97.1 139/56 (83) 97.1 Physical Exam General Appearance: Cooperative. Thin, frail Pulmonary/Respiratory: Clear, bilateral breaths sounds. Cardiovascular/Chest: Regular rate and rhythm. Peripheral Pulses: 2+ Radial (R). 2+ Radial (L). 2+ Pedal (R). 2+ Pedal (L) Abdominal Exam: Normal bowel sounds. Ankle Exam: Negative ankle edema Lower extremities: Negative lower extremity edema Neuro/Mental Status: A/OX3, coherent. Thoughts/Psych: Normal thought pattern. Appearance: No acute distress. Skin Exam: Scabbed wounds to bilateral feet. Skin warm and dry Labs/Diagnostic Data Labs Test 03/29/25 08:14 03/29/25 06:28 03/29/25 06:24 03/28/25 16:00 Range/Units POC Glucose 157 H 70-106 mg/dl White Blood Count 11.6 H 4.4-10.8 10^3/uL Red Blood Count 3.80 L 4.5-5.90 10^6/uL Hemoglobin 11.4 L 13.5-17.5 g/dL Hematocrit 34.4 L 41.0-53.0 % Mean Corpuscular Volume 90.7 80.0-100.0 fL Mean Corpuscular Hemoglobin 30.0 28.0-32.0 pg Mean Corpuscular Hemoglobin Concent 33.1 32.0-36.0 g/dL Red Cell Distribution Width 15.8 H 11.8-14.3 % Platelet Count 422 140-450 10^3/uL Mean Platelet Volume 7.3 6.9-10.8 fL Neutrophils (%) (Auto) 76.6 37.0-80.0 % Lymphocytes (%) (Auto) 15.6 10.0-50.0 % Monocytes (%) (Auto) 6.7 0.0-12.0 % Eosinophils (%) (Auto) 0.7 0.0-7.0 % Basophils (%) (Auto) 0.4 0.0-2.0 % Neutrophils # (Auto) 8.9 H 1.6-8.6 10 ^3/uL Lymphocytes # (Auto) 1.8 0.4-5.4 10 ^3/uL Monocytes # (Auto) 0.8 0-1.3 10 ^3/uL Eosinophils # (Auto) 0.1 0-0.8 10 ^3/uL Basophils # (Auto) 0 0-0.2 10 ^3/uL Nucleated Red Blood Cells 0.1 % Sodium Level 137 136-145 mmol/L Potassium Level 4.6 3.5-5.1 mmol/L Chloride Level 106 98-107 mmol/L Carbon Dioxide Level 25 20-31 mmol/L Anion Gap 6 5-15 Blood Urea Nitrogen 54 H 9-23 mg/dL Creatinine 1.48 H 0.700-1.30 mg/dL Glomerular Filtration Rate Calc 45 >90 mL/min BUN/Creatinine Ratio 36.5 H 10.0-20.0 Serum Glucose 160 H 74-106 mg/dL Calcium Level 9.8 8.7-10.4 mg/dL Total Bilirubin 0.6 0.2-1.0 mg/dL Aspartate Amino Transferase (AST) 16 13-40 U/L Alanine Aminotransferase (ALT) 16 7-40 U/L Alkaline Phosphatase 57 46-116 U/L Troponin I High Sensitivity 52 </=54 ng/L Total Protein 7.1 5.7-8.2 g/dL Albumin 4.0 3.2-4.8 g/dL Urine Color Light-yellow Yellow Urine Clarity Clear Clear Urine pH 5.0 5.0-9.0 Urine Specific [place] 1.019 1.001-1.035 Urine Protein Negative Negative Urine Ketones Negative Negative Urine Blood Negative Negative /uL Urine Nitrite Negative Negative Urine Bilirubin Negative Negative Urine Urobilinogen Normal Negative mg/dL Urine Leukocyte Esterase Negative Negative /uL Urine RBC 1 0 - 3 /hpf Urine Microscopic WBC 1 0-3 /HPF Urine Squamous Epithelial Cells None seen <5 /hpf Urine Bacteria None seen None Seen /hpf Urine Mucus Few None Seen Urine Glucose 4+ H Normal mg/dL Test 03/28/25 11:31 Range/Units B-Type Natriuretic Peptide 50.25 0-100 pg/mL Assessment NSTEMI Rule out CVA Rule out structural heart disease Hypertension Dyslipidemia Type 2 diabetes mellitus Peripheral neuropathy Benign prostatic hyperplasia Blind Dementia Plan/Recommendation We will continue with the following plan/recommendations (Dr. Sung): We will proceed with obtaining a transthoracic echocardiogram to evaluate cardiac function. Troponin level slightly elevated. The patient denies any cardiac symptoms. He does present with stroke-like symptoms. Primary care team currently working up possible CVA. Patient pending brain MRI. Continue with cl ose cardiac surveillance and notify cardiology team for any ECG changes. Further recommendations per clinical course and progression. Thank you for allowing us to care for this patient. Please call with any questions or concerns. Critical care time spent: 44 minutes This medical document was created using an electronic medical record system with voice recognition software and computerized dictation system. Although this document has been carefully reviewed, there might still be some phonetic and typographical errors. Occasional wrong-word or ``sound-alike substitutions may have occurred due to the inherent limitations of voice recognition software. These areas are purely typographical due to imperfections of the software programs and do not reflect any compromise in the patient's medical care. Please read the chart carefully and recognize, using context, where these substitutions have occurred. Plan discussed with: Patient NYHA Physical activity limitations: NA Date of Service: March 29, 2025 Billing Provider: ANTHONY MARVIN Cardiology Common Codes: 55236-PTUCRUP INP/OBS CARE (High) Cardiology Consultation Codes: 11744-VETQCQYPU CONSULT <45MIN ANTHONY MARVIN March 29, 2025 11:43
--- NOTE | 2025-03-29 12:04 | DVHHP2 ---
Admitting Diagnosis: TIA vs CVA Elevated troponin History of Present Illness HPI 89 y.o. male with HTN, DM, dementia was brought to the ED by his family. Family stated that patient was weak and sleepy during the past few days. Yesterday his daughter noticed that he held his right hand curled, he was not answering her questions and had an episode of fixed gaze. Patient is on wheelchair and suffers with partial blindness. In the ED he was found to have a mildly elevated troponin on two separate blood draws. Home Meds Reported Medications Hydrochlorothiazide (Hydrochlorothiazide) 25 Mg Tab, 25 MG PO DAILY, TAB 05/11/14 Hydrochlorothiazide (Hydrochlorothiazide) 12.5 Mg Cap, 12.5 MG PO DAILY, #1 MG 05/10/14 Past Medical History Cardiac: CAD, HTN, Hyperlipidemia Central Nervous System: Dementia Renal/: CKD Endocrine: NIDDM Patient Family History: Diabetes mellitus G8 FATHER, Onset:Unknown Family history: Cardiovascular disease Family history: Hypertension G8 FATHER, Onset:Unknown Review of Systems Constitutional: Weakness H&P Exam Vital Signs Vital Signs Date Time Temp Pulse Resp B/P (MAP) Pulse Ox O2 Delivery O2 Flow Rate FiO2 03/29/25 06:25 72 18 100 03/29/25 06:15 Room Air 03/29/25 06:15 0 21 03/29/25 03:21 97.1 139/56 (83) 97.1 General Appeara: Normal Appearance Head Exam: Normal inspection Neck Exam: Non-tender Eye Exam: bilateral eye PERRL Pulmonary/Respiratory: Lungs clear Cardiovascular/Chest: Regular rate Abdominal Exam: Normal bowel sounds, Soft Neuro/Mental St: Oriented (to person) Eye contact/ Speech: Uncooperative Labs/Xrays Labs Test 03/29/25 11:20 03/29/25 06:28 03/29/25 06:24 03/28/25 16:00 Range/Units POC Glucose 124 H 70-106 mg/dl White Blood Count 11.6 H 4.4-10.8 10^3/uL Red Blood Count 3.80 L 4.5-5.90 10^6/uL Hemoglobin 11.4 L 13.5-17.5 g/dL Hematocrit 34.4 L 41.0-53.0 % Mean Corpuscular Volume 90.7 80.0-100.0 fL Mean Corpuscular Hemoglobin 30.0 28.0-32.0 pg Mean Corpuscular Hemoglobin Concent 33.1 32.0-36.0 g/dL Red Cell Distribution Width 15.8 H 11.8-14.3 % Platelet Count 422 140-450 10^3/uL Mean Platelet Volume 7.3 6.9-10.8 fL Neutrophils (%) (Auto) 76.6 37.0-80.0 % Lymphocytes (%) (Auto) 15.6 10.0-50.0 % Monocytes (%) (Auto) 6.7 0.0-12.0 % Eosinophils (%) (Auto) 0.7 0.0-7.0 % Basophils (%) (Auto) 0.4 0.0-2.0 % Neutrophils # (Auto) 8.9 H 1.6-8.6 10 ^3/uL Lymphocytes # (Auto) 1.8 0.4-5.4 10 ^3/uL Monocytes # (Auto) 0.8 0-1.3 10 ^3/uL Eosinophils # (Auto) 0.1 0-0.8 10 ^3/uL Basophils # (Auto) 0 0-0.2 10 ^3/uL Nucleated Red Blood Cells 0.1 % Sodium Level 137 136-145 mmol/L Potassium Level 4.6 3.5-5.1 mmol/L Chloride Level 106 98-107 mmol/L Carbon Dioxide Level 25 20-31 mmol/L Anion Gap 6 5-15 Blood Urea Nitrogen 54 H 9-23 mg/dL Creatinine 1.48 H 0.700-1.30 mg/dL Glomerular Filtration Rate Calc 45 >90 mL/min BUN/Creatinine Ratio 36.5 H 10.0-20.0 Serum Glucose 160 H 74-106 mg/dL Calcium Level 9.8 8.7-10.4 mg/dL Total Bilirubin 0.6 0.2-1.0 mg/dL Aspartate Amino Transferase (AST) 16 13-40 U/L Alanine Aminotransferase (ALT) 16 7-40 U/L Alkaline Phosphatase 57 46-116 U/L Troponin I High Sensitivity 52 </=54 ng/L Total Protein 7.1 5.7-8.2 g/dL Albumin 4.0 3.2-4.8 g/dL Urine Color Light-yellow Yellow Urine Clarity Clear Clear Urine pH 5.0 5.0-9.0 Urine Specific [place] 1.019 1.001-1.035 Urine Protein Negative Negative Urine Ketones Negative Negative Urine Blood Negative Negative /uL Urine Nitrite Negative Negative Urine Bilirubin Negative Negative Urine Urobilinogen Normal Negative mg/dL Urine Leukocyte Esterase Negative Negative /uL Urine RBC 1 0 - 3 /hpf Urine Microscopic WBC 1 0-3 /HPF Urine Squamous Epithelial Cells None seen <5 /hpf Urine Bacteria None seen None Seen /hpf Urine Mucus Few None Seen Urine Glucose 4+ H Normal mg/dL Test 03/28/25 11:31 Range/Units B-Type Natriuretic Peptide 50.25 0-100 pg/mL Assessment/Plan Problem List: (1) Elevated troponin (2) CVA (cerebral vascular accident) (3) Dementia (4) HTN (hypertension) (5) DM (diabetes mellitus) Plan ECHO, MRI, cardiology consult, Lovenox, neuro check, Insulin Plan discussed with: Patient, Daughter LUKE HENDRICKSON MD March 29, 2025 12:04
--- NOTE | 2025-03-29 12:55 | DVH ---
EXAMINATION: MRI BRAIN HEAD WO CONTRAST INDICATION: CVA COMPARISON: CT scan of the head performed on 03/28/2025. TECHNIQUE: Multiplanar, multisequence magnetic resonance imaging of the brain was performed without the use of i ntravenous contrast. FINDINGS: Significant motion degradation on the diffusion weighted sequences despite multiple attempts limits e valuation. Within this limitation no diffusion-weighted signal abnormality is identified. There is moderate periventricular/deep white matter T2/FLAIR hyperintensity is nonspecific, but most commonly associated with chronic microvascular disease. Old right occipital lobe infarct. Generalized volume loss. The ventricles and sulci are normal in size for age. Clear basal cisterns. Flow voids in the major intracranial vessels are maintained. No abnormality of the orbits. Paranasal sinuses and mastoid air cells are clear. No abnormality of the visualized osseous structures and extracranial soft tissues. IMPRESSION: 1. Limited study especially the diffusion-weighted images due to motion artifact, limiting adequate e valuation for acute infarction. Clinical scenario should dictate repeat brain MRI warranted. HS:Y
[2025-03-29] MEDS ORDERED: HYDROcodone-ACET 10/325MG TAB PO PRN (16:15)
--- NOTE | 2025-03-29 16:53 | DVHSR ---
APPROVED REPORT EXAM: LIMITED Two-dimensional and M-mode echocardiogram with Doppler and color Doppler. Blood Pressure: 139/56 mmHg INDICATION Elevated trops RISK FACTORS Height: 68, Weight: 138 DIMENSIONS EF (%) 56.0 (55-70%)Rt. Atrium (1.9-4.0cm)Asc. Aorta cm Mitral Valve MitralMitral Stenosis E wave0.43m/sMV Mean GR.mmHg A wave0.76m/sMV Peak GR.mmHg E/A ratio0.62D MVAcm2 DECEL [id number] 1/2 Timems Aortic Valve Aortic ValveAortic Stenosis V11.12m/Bre Mean GR.4mmHg V21.28m/Bre Peak GR.7mmHg AI P 1/2 [id number] Other Information Technically limited study due to patient laying flat on his back. Patient was non compliant and was unable to follow directions. Patient was unable to hold his breath. Limited views. Conclusion Technically good study. Sinus rhythm. Difficult acoustic windows. Off axis views. From the limited views obtained there appears to be mild concentric LVH. Normal chamber sizes otherw ise noted. Moderate aortic sclerosis. Moderate mitral annular calcification. The tricuspid valve appears to be structurally normal. Left ventricular systolic performance is preserved at 60% with normal RV function. Doppler reveals normal inflow patterns. Moderate pulmonic insufficiency. Moderate aortic insufficie ncy. No intra-cardiac masses thrombi or vegetations discernible.
[2025-03-29] MEDS: HYDROcodone-ACET 5/325MG TAB PO PRN (16:59)
--- NOTE | 2025-03-29 17:25 | BSKYNEURO ---
[facility] Note # Demographics Consult Type: General Neurology Patient Location: Inpatient First Name: Jeramie Last Name: Jared Date of : 1935 Age: 89 Gender: Male Facility: [facility] Time of Initial Page (): 03/29/2025 13:30 Time of Return Call (): 03/29/2025 13:30 # HPI History: 89 y/o M with Hx of HTN, DM, dementia and blindness presents with Rt wrist drop. MRI Brain negative for acute ischemia # Exam Time of Exam (): 03/29/2025 17:24 Mental Status: - awake - alert and oriented x 3 - follows commands Language: - normal speech Cranial Nerves: - extra ocular movements intact - no facial droop Motor: rt wrist drop Sensory: - normal sensation Cerebellar: - normal finger nose - normal heel cam # Assessment Impression: Rt radial nerve palsy # Plan Therapy/Evaluation: - PT/OT evaluation Other: - If patient has any neurological deterioration please call me back immediately # Logistics Attestation of consult completion: The patient is located at: [facility]. Facility staff participated in the visit. I performed this telemedicine visit from my offsite office utilizing interactive 2 way audio and visual telecommunication technology. Total time spent in telemedicine encounter: I spent 30 minutes reviewing clinical data and/or imaging, obtaining history, examining the patient, commu nicating with the onsite care team, and in preparation of this report. # Demographics First Name: Jeramie Last Name: Jared Facility: [facility] Electronically signed at 03/29/2025 17:25 () by DO Magdy Davis ELIZABETH A DO March 29, 2025 17:25
[2025-03-30] VITALS (13 sets, daily range): BP systolic 119–152; BP diastolic 62–68; PULSE 82–94; RESP 16–18; TEMP 96.2–97.4; O2SAT 95–100
[2025-03-30 07:36] LABS: Magnesium 2.5 mg/dL (1.6-2.6)
[2025-03-30 09:41] LABS: Basophils # (auto) 0.1 10 ^3/uL (0-0.2); Basophils % (auto) 0.5 % (0.0-2.0); Eosinophils # (auto) 0.1 10 ^3/uL (0-0.8); Eosinophils % (auto) 0.7 % (0.0-7.0); Hemoglobin 11.7 g/dL (13.5-17.5); Lymphocytes # (auto) 1.8 10 ^3/uL (0.4-5.4); Mean Corpuscular Hgb Conc. 33.4 g/dL (32.0-36.0); Mean Corpuscular Volume 89.9 fL (80.0-100.0); Monocytes # (auto) 0.8 10 ^3/uL (0-1.3); Monocytes % (auto) 6.6 % (0.0-12.0); Neutrophils # (auto) 9.9 10 ^3/uL (1.6-8.6); Neutrophils % (auto) 78.2 % (37.0-80.0); Nucleated Red Blood Cells % 0.1 %; Platelet Count (auto) 449 10^3/uL (140-450); Red Blood Cells 3.89 10^6/uL (4.5-5.90); Red Cell Distribution Width 15.6 % (11.8-14.3); White Blood Cell 12.7 10^3/uL (4.4-10.8)
[2025-03-30 10:12] LABS: Alanine Aminotransferase 18 U/L (7-40); Albumin 3.9 g/dL (3.2-4.8); Alkaline Phosphatase 63 U/L (46-116); Anion Gap 11 (5-15); Aspartate Aminotransferase 15 U/L (13-40); BUN/Creatinine Ratio 37.3 (10.0-20.0); Calcium 9.5 mg/dL (8.7-10.4); Carbon Dioxide 23 mmol/L (20-31); Chloride 104 mmol/L (98-107); Sodium 138 mmol/L (136-145); Total Protein 6.7 g/dL (5.7-8.2)
[2025-03-30 10:13] LABS: Bilirubin, Total 0.6 mg/dL (0.2-1.0)
[2025-03-30 10:14] LABS: Blood Urea Nitrogen 53 mg/dL (9-23); Glucose 125 mg/dL (74-106)
[2025-03-30] MEDS ORDERED: DOXY-346 PO (12:43)
[2025-03-30] MEDS: SODIUM CHLORIDE 0.9% 1,000 ML IV ONE (13:12)
--- NOTE | 2025-03-30 13:18 | DVHPN2 ---
Consult Progress Note Date Seen: March 30, 2025 Subjective Other Systems: Family at bedside. They deny any cardiac complains from patient Objective vital signs Vital Sign Date Time Temp Pulse Resp B/P (MAP) Pulse Ox O2 Delivery O2 Flow Rate FiO2 03/30/25 12:30 82 18 100 03/30/25 12:24 Room Air 0.0 03/30/25 12:24 21 03/30/25 09:30 96.2 125/62 (83) 96.2 Total Intake and Output 03/29/25 03/29/25 03/30/25 15:00 23:00 07:00 Intake Total 990 ml 0 ml Balance 990 ml 0 ml medications Current Medications Medications Dose Ordered Sig/Slick Route Start Time Stop Time Status Last Admin Dose Admin Nitroglycerin 0.4 mg Q5MINP PRN SL 03/28/25 22:00 Morphine Sulfate 2 mg Q30M PRN IV 03/28/25 22:00 Albuterol 2.5 mg Q6HR NEB 03/29/25 00:00 03/30/25 12:24 2.5 MG Ipratropium [place] 0.5 mg Q6HP PRN NEB 03/29/25 00:00 03/30/25 00:19 0.5 MG Ondansetron HCl 4 mg Q6HPRN PRN IV 03/28/25 22:15 Enoxaparin Sodium 40 mg DAILY SC 03/29/25 10:00 03/30/25 09:13 40 MG Diagnostic Test (Pha) 1 strip IQ4HR 03/29/25 08:00 03/30/25 11:26 1 STRIP Insulin Human Regular IQ4HR SC 03/29/25 08:00 03/29/25 20:00 2 UNITS Dextrose 50 ml UD PRN IV 03/29/25 06:45 Sodium Chloride 1,000 ml @ 75 mls/hr [id number] IV 03/29/25 08:00 03/29/25 22:28 75 MLS/HR Acetaminophen/ Hydrocodone Bitart 1 tab Q8HPRN PRN PO 03/29/25 16:15 03/30/25 11:25 1 TAB Acetaminophen/ Hydrocodone Bitart 1 tab Q8HP PRN PO 03/29/25 16:15 Examination: LUNGS:Normal, CVS:Normal, NEURO:Abnormal (+Cognitive impairment) laboratory and microbiology Laboratory Tests 03/30/25 06:09 Test 03/30/25 06:09 Range/Units Serum Glucose 125 H 74-106 mg/dL Problem List/Assessment/Plan Problem List/Assessment/Plan ?Acute CVA NSTEMI likely Type II Hypertension Dyslipidemia Type 2 diabetes mellitus Peripheral neuropathy Benign prostatic hyperplasia Blind Dementia Plan/Recommendation (Dr. Sung) Transthoracic echocardiogram revealed LVEF 60% with normal RV function. Cardiac stable. Likely NSTEMI Type II. He does present with stroke-like symptoms. Continue Neurological recommendations. There is no further cardiac work-up indicated at this time. Kindly call if in need to re-consult. Thank you for allowing us to care for this patient. This medical document was created using an electronic medical record system with voice recognition software and computerized dictation system. Although this document has been carefully reviewed, there might still be some phonetic and typographical errors. Occasional wrong-word or ``sound-alike substitutions may have occurred due to the inherent limitations of voice recognition software. These areas are purely typographical due to imperfections of the software programs and do not reflect any compromise in the patient's medical care. Please read the chart carefully and recognize, using context, where these substitutions have occurred. Plan discussed with: Patient, Other Dietary Evaluation Review Comments: 1 CCHO-60 plus cardiac diet 2. Increase pO intake to meet 75% of his needs Expected Outcomes/Goals: controlled DM, gradual wt Gain Date of Service: March 30, 2025 Billing Provider: ANTONIO ALEXANDRA Cardiology Common Codes: 94917-[id number] INP/OBS CARE(Mod) ANTONIO ALEXANDRA March 30, 2025 13:18
--- NOTE | 2025-03-30 17:13 | DVHDS2 ---
Discharge Summary Date of Admission Mar 28, 2025 at 21:58 Date of Discharge: March 30, 2025 Labs/Diagnostic Data: Laboratory Results Test 03/30/25 06:09 03/29/25 22:11 03/29/25 06:24 03/28/25 16:00 White Blood Count 12.7 10^3/uL (4.4-10.8) Red Blood Count 3.89 10^6/uL (4.5-5.90) Hemoglobin 11.7 g/dL (13.5-17.5) Hematocrit 35.0 % (41.0-53.0) Mean Corpuscular Volume 89.9 fL (80.0-100.0) Mean Corpuscular Hemoglobin 30.0 pg (28.0-32.0) Mean Corpuscular Hemoglobin Concent 33.4 g/dL (32.0-36.0) Red Cell Distribution Width 15.6 % (11.8-14.3) Platelet Count 449 10^3/uL (140-450) Mean Platelet Volume 7.6 fL (6.9-10.8) Neutrophils (%) (Auto) 78.2 % (37.0-80.0) Lymphocytes (%) (Auto) 14.0 % (10.0-50.0) Monocytes (%) (Auto) 6.6 % (0.0-12.0) Eosinophils (%) (Auto) 0.7 % (0.0-7.0) Basophils (%) (Auto) 0.5 % (0.0-2.0) Neutrophils # (Auto) 9.9 10 ^3/uL (1.6-8.6) Lymphocytes # (Auto) 1.8 10 ^3/uL (0.4-5.4) Monocytes # (Auto) 0.8 10 ^3/uL (0-1.3) Eosinophils # (Auto) 0.1 10 ^3/uL (0-0.8) Basophils # (Auto) 0.1 10 ^3/uL (0-0.2) Nucleated Red Blood Cells 0.1 % Sodium Level 138 mmol/L (136-145) Potassium Level 5.0 mmol/L (3.5-5.1) Chloride Level 104 mmol/L (98-107) Carbon Dioxide Level 23 mmol/L (20-31) Anion Gap 11 (5-15) Blood Urea Nitrogen 53 mg/dL (9-23) Creatinine 1.42 mg/dL (0.700-1.30) Glomerular Filtration Rate Calc 47 mL/min (>90) BUN/Creatinine Ratio 37.3 (10.0-20.0) Serum Glucose 125 mg/dL (74-106) Hemoglobin A1c 7.8 % A1C (<5.7) Calcium Level 9.5 mg/dL (8.7-10.4) Magnesium Level 2.5 mg/dL (1.6-2.6) Total Bilirubin 0.6 mg/dL (0.2-1.0) Aspartate Amino Transferase (AST) 15 U/L (13-40) Alanine Aminotransferase (ALT) 18 U/L (7-40) Alkaline Phosphatase 63 U/L (46-116) Total Protein 6.7 g/dL (5.7-8.2) Albumin 3.9 g/dL (3.2-4.8) Triglycerides Level 102 mg/dL (< 150) Cholesterol Level 162 mg/dL (< 200) LDL Cholesterol 101 mg/dL (< 100) HDL Cholesterol 48 mg/dL (40-59) Thyroid Stimulating Hormone (TSH) 3.95 uIU/mL (0.55-4.78) POC Glucose 159 mg/dl (70-106) Troponin I High Sensitivity 52 ng/L (</=54) Urine Color Light-yellow (Yellow) Urine Clarity Clear (Clear) Urine pH 5.0 (5.0-9.0) Urine Specific [place] 1.019 (1.001-1.035) Urine Protein Negative (Negative) Urine Ketones Negative (Negative) Urine Blood Negative /uL (Negative) Urine Nitrite Negative (Negative) Urine Bilirubin Negative (Negative) Urine Urobilinogen Normal mg/dL (Negative) Urine Leukocyte Esterase Negative /uL (Negative) Urine RBC 1 /hpf (0 - 3) Urine Microscopic WBC 1 /HPF (0-3) Urine Squamous Epithelial Cells None seen /hpf (<5) Urine Bacteria None seen /hpf (None Seen) Urine Mucus Few (None Seen) Urine Glucose 4+ mg/dL (Normal) Test 03/28/25 11:31 B-Type Natriuretic Peptide 50.25 pg/mL (0-100) Other Laboratory Tests 03/30/25 06:09 Brief Hx & Hospital Course: Patient is a 89-year-old with past medical history of dementia, type 2 diabetes, hypertension who was brought in by family due to concern of an acute stroke. Patient was apparently found weak and sleepy for the last several days and noted to have a fixed stare gaze. Patient arrived to the ER and was evaluated by teleneuro. 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 MRI brain without contrast was done and was limited to motion intact but not suggest acute infarct. Neurological examination did not reveal any gross deficits. Patient appeared to be at baseline. Patient was also seen by cardiology for slightly elevated troponin of 75 down trended to 69 and then normalized. 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 Patient is to follow up with podiatry, Dr. Vu. Patient also to follow up with nephrology for AZUL, which improved during his hospitalization. Overall, patient discharged at baseline. [facility]. Condition at Discharge: Good Final Diagnosis/Problems List Altered Mental Status-resolved Secondary Diagnosis: AZUL, likely due to VMN NSTEMI, likely due to demand Dementia Diabetic foot ulcer Type 2 Diabetes Discharge Disposition: Home Discharge Instruct/Medications Diet: Consistent carbohydrate Diet comment: Stay well hydrated. Activity: No Restrictions, As Tolerated Follow Up/Referral: Follow up with endocrine and nephrology. Follow up with podiatry. Take doxycycline for small foot ulcers. Discharge Statement: "Patient was advised to return to the ER or call 911 if any headaches, dizziness, shortness of breath, chest pain, abdominal pain, bleeding, fevers, or worsening of medical condition. Patient was counseled about treatment plan, medications, possible side effects, patientverbalized understanding. All questions were answered to the best of my ability. This discharge took greater then 30 minutes in planning, reviewing documentation, counseling the patient, and discussing with other team members." ASSESSMENT ASSESSMENT Assessment Altered Mental Status FREDIS PONCE DO March 30, 2025 17:12
== END 2025-03-30 18:38 | disposition home or self-care (01) | DRG 73 ==
LOC: ER 10:52 → OVERFLOW 21:58 → TELE-CENTR 22:02
PROVIDERS: ADMIT Internal Medicine; ATTEND Internal Medicine
DX: G56.31 Lesion of radial nerve, right upper limb (principal); I21.A1 Myocardial infarction type 2; N17.0 Acute kidney failure with tubular necrosis; F03.90 Unspecified dementia, unspecified severity, without behavioral disturbance, psychotic disturbance, mood disturbance, and anxiety; H54.7 Unspecified visual loss; E78.5 Hyperlipidemia, unspecified; E11.22 Type 2 diabetes mellitus with diabetic chronic kidney disease; N40.0 Benign prostatic hyperplasia without lower urinary tract symptoms; E11.42 Type 2 diabetes mellitus with diabetic polyneuropathy; N18.9 Chronic kidney disease, unspecified; I12.9 Hypertensive chronic kidney disease with stage 1 through stage 4 chronic kidney disease, or unspecified chronic kidney disease; E11.621 Type 2 diabetes mellitus with foot ulcer; I25.10 Atherosclerotic heart disease of native coronary artery without angina pectoris; Z82.49 Family history of ischemic heart disease and other diseases of the circulatory system; Z83.3 Family history of diabetes mellitus; Z79.84 Long term (current) use of oral hypoglycemic drugs; Z79.899 Other long term (current) drug therapy; L97.529 Non-pressure chronic ulcer of other part of left foot with unspecified severity
CPT/HCPCS: 36415; 70450; 70551; 71045; 80053; 80061; 81001; 82962; 83036; 83735; 83880; 84443; 84484; 85025; 93005; 93306; 94640; 97163; G0378; J1815